=== PATIENT | female | born 1960 | race Caucasian/White ===

== ENCOUNTER 2019-08-11 10:55 | Day surgery (SDC) | payer OTHER, SELFPAY ==
[2019-08-11] VITALS (18 sets, daily range): BP systolic 87–158; BP diastolic 47–119; PULSE 60–94; RESP 16–18; TEMP 36.5–37.4; O2SAT 92–99; BMI 22.8; BMI 22.9
[2019-08-11] MEDS: Lactated Ringers 1,000 ML 100 ML IV ×3 (11:55→22:25)
--- NOTE | 2019-08-11 12:00 | COLBX_PTH ---
PATIENT: NASEEM MARTIN LOC: EN U#:[id number] AGE/SX: 59/F ROOM: RE08/11/[address]: Dr. Dakota Aldridge MD : 1960 BED: DIS: 08/12/2019 SPEC #: [id number] RECD: 08/11/19 14:31 STATUS: BHARGAV MICHELLE #: [id number] ARIN: 08/11/19 12:[address]: Dakota Aldridge DEPT: SURGICAL PATHOLOGY RECD BY: Jose Turner ENTERED: 08/12/19 12:08 SP TYPE: COLON BX OTHR DR: Dr. Giovanni Chau MD Tissues: A - Appendix, NOS B - Ileum, NOS C - COLON BIOPSY D - COLON BIOPSY Procedures: Surgery Specimen Level IV HEADER OPERATION: Colonoscopy (LORRAINE) PRE-OP DIAGNOSIS: Abdomen pain, bloody stools, diverticulitis TISSUE SUBMITTED: A - Appendiceal orifice biopsy, B - Terminal ileum biopsy, C - Random colon biopsies, D - Biopsy of colon at 20 cm of inflammation MICROSCOPIC DIAGNOSIS A. Appendiceal orifice, biopsy: Fragments of colonic mucosa with focal ulceration and acute inflammation. See comment. B. Terminal ileum, biopsy: A fragment of small intestinal mucosa, no pathologic diagnosis. C. Colon, random biopsy: Fragments of colonic mucosa, no pathologic diagnosis. D. Colon at 20 cm, biopsy: Fragment of colonic mucosa, no pathologic diagnosis. SJ:mook 08/13/19 COMMENT A. Cryptitis, crypt abscess or glandular distortion are not seen. Correlation with clinical, endoscopic findings and appropriate follow up are necessary. MICROSCOPIC DESCRIPTION Slides are reviewed. GROSS DESCRIPTION A - Received in fixative is one container labeled with the patient's name and designated appendiceal orifice biopsy. The specimen consists of two irregular fragments of light mitchell soft tissue that in aggregate measure 0.6 x 0.3 x 0.1 cm. The specimen is totally submitted in one cassette. B - Received in fixative is one container labeled with the patient's name and designated terminal ileum. The specimen consists of one irregular fragment of light mitchell soft tissue that measures 0.5 x 0.3 x 0.1 cm. The specimen is totally submitted in one cassette. C - Received in fixative is one container labeled with the patient's name and designated random colon biopsy. The specimen consists of multiple irregular fragments of light mitchell soft tissue that in aggregate measure 1 x 0.2 x 0.1 cm. The specimen is totally submitted in one cassette. D - Received in fixative is one container labeled with the patient's name and designated biopsy of colon at 20 cm. The specimen consists of one irregular fragment of light mitchell soft tissue that measures 0.5 x 0.2 x 0.1 cm. The specimen is totally submitted in one cassette. / AM:mook 08/12/19 TC:2 CPT: 54326 x4
--- NOTE | 2019-08-11 12:24 | HP.PCM_ITS ---
History and Physical Date of Admission: 08/11/19 FOLLOW UP VISIT ? ? NAME: Frieda Calderon [facility] NO.: [id number] DATE OF SERVICE: 07/14/2019 ? : 1960 ? REFERRING PHYSICIAN: ?Giovanni Chau MD ? Frieda is a patient I am following for?lower abdominal pain and changes questionable for diverticulitis per the patient. ? he patient is a 59 year old female with a complaint of abdominal pain of the last 2-3 weeks. ?The patient noted abdominal pain was relatively severe with cramping in the left lower quadrant. ?She stated she had decreased stool output when the pain was more severe but did not truly have obstipation. ?She felt the pain was similar to her previous diagnosed episodes of diverticulitis approximately 15 years previously. ?Once the pain began to subside, she noted mucus and some bright blood in her bowel movements. ?The blood was not mixed within stool and this occurred for approximately 2 days. ?She has not noted any further mucus or bleeding. ?He still notes some mild left lower quadrant and suprapubic pressure. ? She also notes a sensation of pressure with urination but denies any true dysuria. ?She's had a low-grade fever. ?When her symptoms were worse she noted nausea but denied vomiting. ? She had colonoscopy performed in 2014 which demonstrated some diverticula and a polyp which was removed. ?Pathology returned as a tubular adenoma and recommended 5 year follow-up colonoscopy. ?The patient has no family history of colon issues other than a maternal grandfather with gastric complaints. ? The patient is being seen by me today at the request of Dr. Giovanni Chau MD for my opinion and advice regarding pelvic pain, questionable diverticulitis and bloody mucous per rectum.? ? A CBC was obtained which demonstrated a normal white blood cell count but an elevated platelet count., ?Presumably panel was generally unremarkable. ?CT scan of the abdomen pelvis was obtained. ?This demonstrated with the report returning as: ? IMPRESSION: Nonobstructive bowel gas pattern with diverticulosis. Wall thickening and pericolonic infiltrative change suggesting diverticulitis at the distal rectosigmoid colon. Incidental finding of a lobulated noncalcified left lower lobe pulmonary nodule which requires further evaluation. CT scan of the chest with contrast may be helpful. ? My review of the CT scan wasn't this was a longer segment of inflammation and given the fact she had pain and bleeding was more likely consistent with colitis versus diverticulitis. ?I called the patient on Saturday discussed the findings and sent a prescription for ciprofloxacin and Flagyl for her to start. 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 ? She notes no further bleeding. ?She notes some fecal urgency but improvement in her otherwise pain symptoms. ? She is here today with her daughter area and her daughter notes that the patient is having rather regular recurring left lower quadrant symptoms and bloody diarrhea and questions?whether this may be inflammatory bowel disease ? . ?? ? VITALS:?There were no vitals taken for this visit. ? On examination,?she was less tender today than last visit ? Assessment ? IMPRESSION:?Colitis-nonspecific colitis versus inflammatory bowel disease ? PLAN: ?If the patient notes any problems or signs of worsening abdominal pain fever or recurrent bleeding, the patient should contact me immediately. ? My plan is to have her follow-up with me in 2-3 weeks and then plan to schedule a colonoscopy at a later date. ? Diagnoses:?(K52.9) Idiopathic colitis ?(primary encounter diagnosis) (K62.5) Rectal bleeding (R10.30) Lower abdominal pain ?Return to Clinic: The patient is instructed to follow-up with me?in?3?weeks. ? ? ? Dakota Aldridge MD ?
--- NOTE | 2019-08-11 14:03 | OP.COLON_ITS ---
Patient Name: Frieda Calderon Procedure Date: 08/11/2019 1:27 PM Date of : 1960 Age: 59 Procedure: Colonoscopy Indications: Abdominal pain in the left lower quadrant, Hematochezia Providers: Dakota Aldridge MD Referring MD: Giovanni Chau Medicines: Monitored Anesthesia Care Patient Profile: This is a 59 year old female. Refer to note in patient chart for documentation of history and physical. Last Colonoscopy: date unknown. Complications: No immediate complications. Procedure: Pre-Anesthesia Assessment: - Prior to the procedure, a History and Physical was performed, and patient medications and allergies were reviewed. The patient is competent. The risks and benefits of the procedure and the sedation options and risks were discussed with the patient. All questions were answered and informed consent was obtained. Patient identification and proposed procedure were verified by the physician, the nurse, the anesthesiologist and the interpreter deaf in the procedure room. Mental Status Examination: alert and oriented. Airway Examination: normal oropharyngeal airway and neck mobility. Respiratory Examination: clear to auscultation. CV Examination: normal. Prophylactic Antibiotics: The patient does not require prophylactic antibiotics. Prior Anticoagulants: The patient has taken no previous anticoagulant or antiplatelet agents. ASA Grade Assessment: II - A patient with mild systemic disease. After reviewing the risks and benefits, the patient was deemed in satisfactory condition to undergo the procedure. The anesthesia plan was to use monitored anesthesia care (MAC). Immediately prior to administration of medications, the patient was re-assessed for adequacy to receive sedatives. The heart rate, respiratory rate, oxygen saturations, blood pressure, adequacy of pulmonary ventilation, and response to care were monitored throughout the procedure. The physical status of the patient was re-assessed after the procedure. After I obtained informed consent, the scope was passed under direct vision. Throughout the procedure, the patient's blood pressure, pulse, and oxygen saturations were monitored continuously. The colonoscope was introduced through the anus and advanced to the cecum, identified by the appendiceal orifice, ileocecal valve and palpation. The colonoscopy was performed without difficulty. The patient tolerated the procedure well. The quality of the bowel preparation was good. Scope In: 1:42:34 PM Scope Withdrawal Time 0 hours 9 minutes 15 seconds Scope Out: 1:58:23 PM Total Procedure Duration Time 0 hours 15 minutes 49 seconds Findings: The perianal and digital rectal examinations were normal. Localized mild inflammation characterized by erosions and erythema was found appendiceal orifice. Biopsies were taken with a cold forceps for histology. The terminal ileum appeared normal. Biopsies were taken with a cold forceps for histology. The cecum appeared normal. Biopsies for histology were taken with a cold forceps from the cecum and sigmoid colon for evaluation of microscopic colitis. Localized moderate inflammation characterized by erosions, erythema and friability was found in the recto-sigmoid colon. Biopsies were taken with a cold forceps for histology. The retroflexed view of the distal rectum and anal verge was normal and showed no anal or rectal abnormalities. Impression: - Localized mild inflammation was found at the appendiceal orifice secondary to colitis. Biopsied. - The examined portion of the ileum was normal. Biopsied. - The cecum is normal. Biopsied. - Localized moderate inflammation was found in the recto-sigmoid colon secondary to proctitis. Biopsied. - The distal rectum and anal verge are normal on retroflexion view. Recommendation: - Discharge patient to home. - Resume previous diet. - Continue present medications. - Return to my office in 5 days. - Repeat colonoscopy is recommended. The colonoscopy date will be determined after pathology results from today's exam become available for review. Procedure Code(s): --- Professional --- 47333, Colonoscopy, flexible; with biopsy, single or multiple CPT copyright 2017 [employer]. All rights reserved. The codes documented in this report are preliminary and upon city planning engineer review may be revised to meet current compliance requirements. Dakota Aldridge MD 08/11/2019 2:03:22 PM This report has been signed electronically. Number of Addenda: 0 Note Initiated On: 08/11/2019 1:27 PM
--- NOTE | 2019-08-11 14:39 | CT_ITS ---
STUDY: CT ABDOMEN AND PELVIS WITHOUT CONTRAST REASON FOR EXAM: Female, 59 years old. Severe pain following colonoscopy. RADIATION DOSAGE (If Supplied By Facility): CTDIvol = ( 6.20 ) mGy, DLP = ( 271.11 ) mGycm TECHNIQUE: Transaxial images were obtained from the dome of the diaphragm to the symphysis pubis without oral contrast, and without intravenous contrast. Sagittal and coronal images were reconstructed. Individualized dose optimization techniques were used for this CT. COMPARISON: None. FINDINGS: The visualized lung bases are unremarkable. The visualized portions of the heart are within normal limits. Normal liver. There are surgical clips in the gallbladder fossa consistent with a prior cholecystectomy. Normal spleen. Normal pancreas. Normal bilateral adrenal glands. Normal right kidney. Normal left kidney. Normal visualized stomach. Normal small intestine. A 7.4 mm x 8.6 mm rounded density is seen in the region of the cecum. This may represent an ingested tablet. Sigmoid diverticulosis. There is a 3.1 cm x 2 cm well-defined air collection in the central pelvis. Adjacent to this, a smaller similar-appearing air collection is seen. This may represent either localized perforation or a large diverticulum. The patient is status post appendectomy. There is diffuse atherosclerotic calcification of the abdominal aorta, without a demonstrated aneurysm. Normal inferior vena cava. Normal retroperitoneum. Normal urinary bladder. There is absence of the uterus consistent with a prior hysterectomy. Normal abdominal wall. Normal osseous structures. CT/Abdomen/Pelvis without Cont IMPRESSION: Sigmoid diverticulosis with possible localized diverticular rupture in the central portion of the pelvis as described. Electronically Signed: Ricci Fulton, at 15:37 EST , Service support ,
[2019-08-11 16:48] LABS: Absolute Lymphocyte Count 1.92 X10^3/uL (0.83-4.51); Absolute Neutrophil Count 1.8 X10^3/uL (2.0-7.7); Basophil# 0.04 X10^3/uL; Basophil% 0.9 % (0-1); Eosinophil# 0.12 X10^3/uL; Eosinophils% 2.8 % (0-5); Hematocrit 35.7 % (37-47); Hemoglobin 11.9 g/dL (12.0-15.0); Lymphocyte # 1.92 X10^3/ul (4.0); Lymphocyte % 44.8 % (19-41); Mean Corp Hgb Conc 33.3 g/dL (32-36); Mean Platelet Vol. 8.4 fl (6.2-12.0); Monocyte# 0.38 X10^3/uL; Monocyte% 8.9 % (0-10); NRBC Flagged by Analyzer 0 % (0-5); Neutrophil # 1.83 X10^3/uL (2.7-7.7); Neutrophil % 42.6 % (47-70); Platelet Count 299 K/mm3 (150-450); RBC Distribution Width CV 13.1 % (11.6-14.6); RBC Distribution Width SD 46.1 fl (35.1-43.9); Red Blood Count 3.72 M/mm3 (4.2-5.4); White Blood Count 4.3 K/mm3 (4.4-11.0)
[2019-08-11 16:58] LABS: Anion Gap 4 (5-15); BUN 5 mg/dL (7-18); BUN/Creat Ratio 9.1 RATIO (10-20); Calcium,Total 8.6 mg/dL (8.5-10.1); Chloride 111 mmol/L (98-107); Creatinine, Serum 0.55 mg/dL (0.55-1.02); EST Glomerular Filtration Rate 121 mL/min (>60); Est Glom Filt Rate - Afr Amer 147 mL/min (>60); Glucose 86 mg/dL (74-106); Potassium 3.7 mmol/L (3.5-5.1); Sodium Level 144 mmol/L (136-145)
--- NOTE | 2019-08-11 18:00 | NURSING ---
pt ambulated to bathroom, then around room. tolerated well.
--- NOTE | 2019-08-11 18:57 | PCM.PN.SRG ---
Objective: improved abdominal pain following morphine administration - Physical Exam Vitals/I&O's: Vital Signs Temp Pulse Resp BP Pulse Ox 98.5 F 80 18 101/55 L 97 08/11/19 17:40 08/11/19 17:40 08/11/19 17:40 08/11/19 17:40 08/11/19 17:40 Oxygen Delivery Method Room Air Weight: 64.41 kg Body Mass Index (BMI) 22.8 Intake and Output for Last 24 Hours 08/09/19 08/10/19 08/11/19 23:59 23:59 23:59 Intake Total 423.33 / 423.33 Output Total 500 / 500 Balance -76.67 / -76.67 General: Alert, Oriented x3, Cooperative Lungs: Clear to auscultation, Normal air movement Cardiovascular: Regular rate, Regular Rhythm Abdomen: Bowel Sounds Present, Hypoactive Bowel Sounds, Tender - mild diffusely without peritoneal signs Laboratory Results 08/11/19 16:40: WBC 4.3 L, RBC 3.72 L, Hgb 11.9 L, Hct 35.7 L, MCV 96.0, MCH 32.0, MCHC 33.3, RDW Std Deviation 46.1 H, RDW Coeff of Mikael 13.1, Plt Count 299, MPV 8.4, Immature Gran % (Auto) 0.000, Neut % (Auto) 42.6 L, Lymph % (Auto) 44.8 H, [place] % (Auto) 8.9, Eos % (Auto) 2.8, Baso % (Auto) 0.9, Absolute Neuts (auto) 1.8 L, Absolute Lymphs (auto) 1.92, Nucleated RBC % 0 08/11/19 16:40: Sodium 144, Potassium 3.7, Chloride 111 H, Carbon Dioxide 29.0, Anion Gap 4 L, BUN 5 L, Creatinine 0.55, Est GFR (MDRD) Af Amer 147, Est GFR (MDRD) Non-Af 121, BUN/Creatinine Ratio 9.1 L, Glucose 86, Calcium 8.6 Current Medications Lactated Ringer's () 1,000 mls @ 100 mls/hr IV .Q10H JAKI Last Admin: 08/11/19 16:09 Dose: 100 mls/hr Documented by: Piperacillin Sod/Tazobactam (Sod 3.375 gm/ Sodium Chloride) 50 mls @ 12.5 mls/hr IV Q8 JAKI Last Admin: 08/11/19 18:44 Dose: 12.5 mls/hr Documented by: Morphine Sulfate () 1 - 4 mg IV Q1H PRN PRN PRN Reason: Pain Score 1-10/10 Sodium Chloride () 10 - 40 ml IV UD PRN PRN Reason: SALINE FLUSH Medical Necessity - Tobacco Use Smoking Status: Current every day smoker Tobacco Use: Cigarettes Assessment/Plan patient with significant diffuse abdominal pain post-colonoscopy. CT scan was obtained which suggested extraluminal air in the pelvis without significant upper abdominal or generalized free air or obvious signs of pericolonic perforation. Multiple biopsies were performed of the terminal ileum cecal base random colon sigmoid colon and low rectal areas. This could be microperforation versus true intraluminal gas in distended bowel. Are now we'll treat patient is microperforation. White blood cell count was 4.3 and patient without significant fever area and started Zosyn given the patient's allergies. We'll plan for repeat laboratory studies serial exams and repeat CAT scan in the morning.
[2019-08-11] MEDS: Morphine 2 MG/ML Syringe IV ×2 (19:26→23:20)
[2019-08-11] MEDS: ALPRAZolam 0.5 MG Tablet PO (23:56)
[2019-08-12 03:01] VITALS: BP 99/54; PULSE 73; RESP 18; TEMP 36.8; O2SAT 95
--- NOTE | 2019-08-12 05:00 | CT_ITS ---
STUDY: CT ABDOMEN AND PELVIS WITHOUT CONTRAST REASON FOR EXAM: Female, 59 years old. Severe abdominal pain post colonoscopy. History of previous appendectomy, cholecystectomy, and unilateral salpingo-oophorectomy. RADIATION DOSAGE (If Supplied By Facility): CTDIvol = ( 6.13 ) mGy, DLP = ( 280.38 ) mGycm TECHNIQUE: Transaxial images were obtained from the dome of the diaphragm to the symphysis pubis without oral contrast, and without intravenous contrast. Sagittal and coronal images were reconstructed. Individualized dose optimization techniques were used for this CT. COMPARISON: CT scan 08/11/2019. FINDINGS: There is mild atelectasis in the visualized posterior lung bases, which is worsened from yesterday's exam. There is minimal pleural fluid bilaterally, which is also new.. There are some calcified pulmonary granulomas in the right lower lobe. There is The visualized portions of the heart are within normal limits. Normal liver. There are surgical clips in the gallbladder fossa consistent with a prior cholecystectomy. Normal spleen. Normal pancreas. Normal bilateral adrenal glands. Normal right kidney. Normal left kidney. Normal visualized stomach. Normal small intestine. There are multiple colonic diverticula consistent with diverticulosis. There is no evidence for acute diverticulitis. A 3 cm collection of air in the mid pelvis, noted on yesterday's exam, is not seen on current study. Review of the previous images suggest that it represented focal gaseous distention of a small bowel loop. There is a 9 mm rounded calcific density in the cecum, also present on previous exam. Finding may represent an undigested pill. This is of doubtful clinical significance. The appendix is not visualized, consistent with given history of prior appendectomy. There is atherosclerotic calcification of the abdominal aorta, without a demonstrated aneurysm. Normal inferior vena cava. Normal retroperitoneum. Normal urinary bladder. There is a surgical clip in the right adnexal region, possibly related to previous salpingectomy. Normal abdominal wall. Normal osseous structures. CT/Abdomen/Pelvis without Cont IMPRESSION: Worsening bilateral posterior basilar atelectasis. New finding of very small bilateral pleural effusions. Colonic diverticulosis, without evidence for acute diverticulitis. No evidence for colonic perforation or pericolonic abscess. Atherosclerosis. Previous cholecystectomy and right salpingo-oophorectomy. Previous appendectomy by history. No evidence for acute pathology within the abdomen or pelvis. Electronically Signed: Ramiro Solis MD at 6:43 EST , Service support ,
[2019-08-12 06:28] LABS: Absolute Neutrophil Count 3.3 X10^3/uL (2.0-7.7); Basophil# 0.05 X10^3/uL; Basophil% 0.9 % (0-1); Eosinophil# 0.09 X10^3/uL; Eosinophils% 1.6 % (0-5); Hematocrit 35.8 % (37-47); Hemoglobin 11.9 g/dL (12.0-15.0); Lymphocyte % 29.8 % (19-41); Mean Corp Hgb Conc 33.2 g/dL (32-36); Mean Corpuscular Volume 96.2 fL (81-99); Mean Platelet Vol. 8.3 fl (6.2-12.0); Monocyte# 0.57 X10^3/uL; NRBC Flagged by Analyzer 0 % (0-5); Neutrophil # 3.28 X10^3/uL (2.7-7.7); Neutrophil % 57.3 % (47-70); Platelet Count 307 K/mm3 (150-450); RBC Distribution Width CV 13.1 % (11.6-14.6); Red Blood Count 3.72 M/mm3 (4.2-5.4); White Blood Count 5.7 K/mm3 (4.4-11.0)
[2019-08-12 06:45] LABS: ALB/GLOB Ratio 1.1 RATIO (0.9-2.4); AST(SGOT) 72 U/L (15-37); Alanine Aminotransfer ALT/SGPT 70 U/L (13-56); Albumin, Serum 3.2 g/dL (3.2-5.0); Alkaline Phosphatase 78 U/L (45-117); Anion Gap 6 (5-15); BUN 5 mg/dL (7-18); BUN/Creat Ratio 7.7 RATIO (10-20); Calcium,Total 8.3 mg/dL (8.5-10.1); Chloride 108 mmol/L (98-107); Creatinine, Serum 0.65 mg/dL (0.55-1.02); EST Glomerular Filtration Rate 100 mL/min (>60); Est Glom Filt Rate - Afr Amer 120 mL/min (>60); Estimated Creatinine Clearance 89.39 ml/min; Globulin 2.9 g/dL (2.2-4.2); Glucose 87 mg/dL (74-106); Potassium 3.6 mmol/L (3.5-5.1); Protein, Total 6.1 g/dL (6.4-8.2); Sodium Level 142 mmol/L (136-145)
[2019-08-12] MEDS: Acetaminophen 325 MG Tablet 650 MG PO ×2 (07:39→14:37)
[2019-08-12] MEDS: Ibuprofen 600 MG Tablet PO (08:56)
[2019-08-12 09:01] VITALS: BP 95/57; PULSE 74; RESP 16; TEMP 36.4; O2SAT 94
[2019-08-12] MEDS: Lactated Ringers 1,000 ML 100 ML IV (09:48)
[2019-08-12 14:43] VITALS: BP 108/62; PULSE 65; RESP 16; TEMP 36.6; O2SAT 93
--- NOTE | 2019-08-12 18:34 | PCM.DC.SUM ---
Discharge Date and Diagnosis Date of Admission: 08/11/19 Date of Discharge: 08/12/19 - Primary Discharge Diagnosis left lower quadrant pain, questionable colitis versus diverticulitis Hospital Course and Treatment Procedures: Colonoscopy Summary of Care Provided: The patient is a 59 year old F with relatively chronic left lower quadrant pain who had more acute left lower quadrant pain and was given a diagnosis following CAT scan of diverticulitis versus colitis. The patient noted left lower quadrant pain and rectal bleeding. She presented for outpatient colonoscopy. Post colonoscopy the patient had significant abdominal pain that seemed out of portion for a colonoscopy with biopsies that was relatively uneventful. CT scan was obtained which suggested free air. The patient's white count vitals were normal. She was admitted made nothing by mouth and given IV antibiotics as a precaution. Overnight the patient was able to pass flatus and noted improvement in her abdominal discomfort. Repeat CT scan the following morning demonstrated no free air normal bowel gas pattern. The patient's white blood cell count was normal and she was hungry. Her diet was advanced and she was discharged home with instructions to follow-up in my office. - Physical Exam Vitals/I&O's: Vital Signs Temp Pulse Resp BP Pulse Ox 97.9 F 65 16 108/62 93 08/12/19 14:43 08/12/19 14:43 08/12/19 14:43 08/12/19 14:43 08/12/19 14:43 Oxygen Delivery Method Room Air Weight: 64.41 kg Body Mass Index (BMI) 22.8 Intake and Output for Last 24 Hours 08/10/19 08/11/19 08/12/19 23:59 23:59 23:59 Intake Total 1100.00 / 1130.00 2414.17 / 2414.17 Output Total 500 / 500 300 / 300 Balance 600.00 / 630.00 2114.17 / 2114.17 General: Alert, Oriented x3, Cooperative Lungs: Clear to auscultation, Normal air movement Cardiovascular: Regular rate, No murmurs Abdomen: Bowel Sounds Present, Soft, Non Tender Laboratory Results 08/12/19 06:10: WBC 5.7, RBC 3.72 L, Hgb 11.9 L, Hct 35.8 L, MCV 96.2, MCH 32.0, MCHC 33.2, RDW Std Deviation 47.0 H, RDW Coeff of Mikael 13.1, Plt Count 307, MPV 8.3, Immature Gran % (Auto) 0.400, Neut % (Auto) 57.3, Lymph % (Auto) 29.8, [place] % (Auto) 10.0, Eos % (Auto) 1.6, Baso % (Auto) 0.9, Absolute Neuts (auto) 3.3, Absolute Lymphs (auto) 1.70, Nucleated RBC % 0 08/12/19 06:10: Sodium 142, Potassium 3.6, Chloride 108 H, Carbon Dioxide 28.0, Anion Gap 6, BUN 5 L, Creatinine 0.65, Estim Creat Clear Calc 89.39, Est GFR (MDRD) Af Amer 120, Est GFR (MDRD) Non-Af 100, BUN/Creatinine Ratio 7.7 L, Glucose 87, Calcium 8.3 L, Total Bilirubin 0.40, AST 72 H, ALT 70 H, Alkaline Phosphatase 78, Total Protein 6.1 L, Albumin 3.2, Globulin 2.9, Albumin/Globulin Ratio 1.1 Home Medications: Medications to take at Discharge Pindolol [Pindolol ([place]eta [place])] 2.5 mg PO BID 05/23/15 ALPRAZolam [Xanax] 0.5 mg PO BID PRN PRN 08/07/19 Primary Care Physician: Giovanni Chau MD [Primary Care Provider] - Please Follow Up With: Dakota Aldridge MD Medical Necessity - Tobacco Use Smoking Status: Current every day smoker Tobacco Use: Cigarettes Meaningful Use Info Meaningful Use Diagnoses (Choose all that apply): None applicable
== END 2019-08-12 14:12 | disposition home or self-care (01) ==
LOC: EN 10:56 → AC 11:00 → PCU 17:25
PROVIDERS: Family Provider Internal Medicine; PCP Internal Medicine; Referring Provider Internal Medicine; Visit Provider Surgery
PROC: 0DJD8ZZ Inspection of Lower Intestinal Tract, Via Natural or Artificial Opening Endoscopic (ICD-10-PCS; CPT 45378; principal; 2019-08-11 11:55)
DX: K52.9 Noninfective gastroenteritis and colitis, unspecified (principal); K62.5 Hemorrhage of anus and rectum; R10.30 Lower abdominal pain, unspecified; F17.210 Nicotine dependence, cigarettes, uncomplicated; K57.30 Diverticulosis of large intestine without perforation or abscess without bleeding; R91.1 Solitary pulmonary nodule
CPT/HCPCS: 45380; 36415; 74176; 80048; 80053; 85025; 88305; 99251; 99406; J7050; J7120; G0463; J2405

== ENCOUNTER → 2019-09-01 13:33 | Outpatient (CLI) | payer OTHER, SELFPAY ==
[2019-08-11 17:37] VITALS: BMI 22.8
--- NOTE | 2019-09-01 14:31 | CT_ITS ---
STUDY: LOW DOSE CT LUNG CANCER SCREENING REASON FOR EXAM: Female, 59 years old. The patient smoked 1 pack per day for 44 years. RADIATION DOSAGE (If Supplied By Facility): CTDIvol = ( 2.01 ) mGy, DLP = ( 62.43 ) mGycm TECHNIQUE: No contrast was administered. Low dose technique was utilized (average mAS-38 and kVp 120). 1.25 mm axial source images with a slice interval of 1.25-mm were reconstructed in lung windows. 2.5 mm axial source images with a slice interval of 2.5-mm were reconstructed in lung windows. 5.0 mm axial source images with a slice interval of 5.0-mm were reconstructed in soft tissue windows. Nodule measured using lung windows on PACS and/or independent workstation with automated measurement of minimum and maximum diameter. Nodule measurement reported as average diameter rounded to the nearest whole number. Growth is defined as an increase ins size of greater than 1.5 mm. COMPARISON: None. NODULES: There is a 9.4 mm x 12.2 mm x 9.1 mm lobulated nodular density in the anterior aspect of the left lower lobe as seen on axial image #150 and coronal image #151. No calcification is seen within it. Scattered tiny nodular densities are seen in the peripheral aspect of both lower lobes suggestive of tiny noncalcified granulomas. Emphysema: Mild emphysematous changes. Aorta: Unremarkable. Coronary arteries: Coronary artery calcification. CT/Low Dose CT Lung Screening IMPRESSION: Lung-RADS category 4B - Chest CT with or without contrast, PET/CT and/or tissue sampling can be obgtained depending on the probability of maligancy and comorbidities. IMPORTANT NOTES FOR USE: ACR Lung-RADS Version 1.0 Assessment Categories Release Date: January 18, 2014 Category: Coded 0-4 bases on nodule(s) with highest degree of suspicion. Negative screen is defined as categories 1 and 2; a positive screen is defined as categories 3 and 4. Category 3 and 4A nodules that are unchanged on interval CT should be coded as category 2, and individuals returned to screening in 12 months. Category 4X: Category 3 or 4 nodules with additional imaging findings that increase the suspicion of lung cancer, such as spiculation, GGN that doubles in size in 1 year, enlarged lymph notes, etc. Category Modifiers: S (significant finding unrelated to lung cancer) and C (prior history of treated lung cancer) may be added to the 0-4 Lung-RADS Electronically Signed: Ricci Fulton, at 15:48 EST , Service support ,
== END ==
PROVIDERS: Family Provider Internal Medicine; PCP Internal Medicine; Referring Provider Nurse Practitioner Family; Visit Provider Nurse Practitioner Family
DX: Z12.2 Encounter for screening for malignant neoplasm of respiratory organs (principal); F17.209 Nicotine dependence, unspecified, with unspecified nicotine-induced disorders
CPT/HCPCS: G0297

== ENCOUNTER 2022-04-13 14:02 | Emergency (ER) | payer SELFPAY ==
[2022-04-13 14:05] VITALS: BP 159/89; PULSE 66; RESP 18; TEMP 36.4; O2SAT 97; BMI 23.3
--- NOTE | 2022-04-13 14:20 | EKG12_ITS ---
Test Reason : PAIN Blood Pressure : / mmHG Vent. Rate : 059 BPM Atrial Rate : 059 BPM P-R Int : 138 ms QRS Dur : 074 ms QT Int : 420 ms P-R-T Axes : 066 071 065 degrees QTc Int : 415 ms Sinus bradycardia Septal infarct , age undetermined Abnormal ECG Confirmed by BRYNAT BLAKE, EH ([id number]), editorial manager REAL RHODES ([id number]) on 04/17/2022 9:22:11 AM Referred By: JULIO CÉSAR Confirmed By:EH HURTADO MD
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
[2022-04-13 14:46] LABS: Absolute Lymphocyte Count 2.44 X10^3/uL (0.83-4.51); Absolute Neutrophil Count 3.8 X10^3/uL (2.0-7.7); Basophil# 0.04 X10^3/uL; Basophil% 0.6 % (0-1); Eosinophil# 0.28 X10^3/uL; Eosinophils% 3.9 % (0-5); Hematocrit 44.6 % (37-47); Lymphocyte # 2.44 X10^3/ul (0.83-4.51); Lymphocyte % 34.2 % (19-41); Mean Corp Hgb Conc 33.6 g/dL (32-36); Mean Corpuscular Hgb 32.6 pg (27.0-32.0); Mean Platelet Vol. 8.4 fl (6.2-12.0); Monocyte# 0.59 X10^3/uL; Monocyte% 8.3 % (0-10); NRBC Flagged by Analyzer 0 % (0-5); Neutrophil # 3.77 X10^3/uL (2.7-7.7); Neutrophil % 52.7 % (47-70); Platelet Count 331 K/mm3 (150-450); RBC Distribution Width CV 12.9 % (11.6-14.6); RBC Distribution Width SD 45.8 fl (35.1-43.9); White Blood Count 7.1 K/mm3 (4.4-11.0)
[2022-04-13 14:50] VITALS: BP 133/82; PULSE 64; RESP 17; O2SAT 94
[2022-04-13] MEDS: 0.9% Normal Saline 1,000 ML 999 ML IV (14:59)
[2022-04-13 15:06] LABS: ALB/GLOB Ratio 1.2 RATIO (0.9-2.4); AST(SGOT) 15 U/L (15-37); Alanine Aminotransfer ALT/SGPT 28 U/L (13-56); Albumin, Serum 4.2 g/dL (3.2-5.0); Alkaline Phosphatase 60 U/L (45-117); Anion Gap 5 (5-15); BUN 7 mg/dL (7-18); BUN/Creat Ratio 9.8 RATIO (10-20); Calcium,Total 9.3 mg/dL (8.5-10.1); Chloride 109 mmol/L (98-107); Creatinine, Serum 0.71 mg/dL (0.55-1.02); EST Glomerular Filtration Rate 89 mL/min (>60); Est Glom Filt Rate - Afr Amer 107 mL/min (>60); Estimated Creatinine Clearance 78.88 ml/min; Globulin 3.4 g/dL (2.2-4.2); Glucose 98 mg/dL (74-106); Potassium 3.9 mmol/L (3.5-5.1); Protein, Total 7.6 g/dL (6.4-8.2); Sodium Level 140 mmol/L (136-145); Troponin-I HS 4 pg/mL (3.0-54.0)
[2022-04-13 16:25] VITALS: BP 122/71; PULSE 57; RESP 15; O2SAT 96
[2022-04-13 16:40] VITALS: BP 130/66; PULSE 59; RESP 15; O2SAT 96
[2022-04-13 16:57] LABS: Bacteria 0 SEEN /hpf (None Seen); Mucous, Urine 0 SEEN /hpf (<or=2+); Red Blood Cells-Urine 0 SEEN /hpf (0-5); White Blood Cells 0 SEEN /hpf (0-5)
[2022-04-13 17:06] LABS: Color, Urine Yellow (Yellow); Glucose, Dipstick Normal (Normal); Ketone-Dipstick 15 mg/dl (Negative); Leukocyte Esterase-Dipstick Negative /ul (Negative); Nitrite-Dipstick Negative (Negative); Occult Blood-Urine Negative /ul (Negative); Protein-Dipstick Negative (Negative); Specific Gravity, Urine 1.015 (1.002-1.030); Urine Bilirubin Dipstick Negative (Negative); Urine Clarity Sl. Cloudy (Clear); Urine Urobilinogen Normal (Normal)
[2022-04-13] MEDS: Ketorolac 15 MG/ML Vial IV (17:06)
[2022-04-13 17:15] LABS: Squamous Epithelial Cells - UA 0-5 SEEN /hpf (5-10)
[2022-04-13] MEDS: Acetaminophen 325 MG Tablet 650 MG PO (18:41)
--- NOTE | 2022-04-13 18:54 | CT_ITS ---
STUDY: CT BRAIN WITHOUT CONTRAST REASON FOR EXAM: Female, 62 years old. headache RADIATION DOSAGE (If Supplied By Facility): CTDIvol = ( 47.06 ) mGy, DLP = ( 890.33 ) mGycm TECHNIQUE: Transaxial CT imaging of the brain was performed without administration of intravenous contrast material. Individualized dose optimization techniques were used for this CT. COMPARISON: No relevant priors. FINDINGS: Normal soft tissue structures. Normal calvarium. Calcific plaquing of cavernous carotids. Normal size ventricles and extra-axial spaces for the patient''s age. Minor periventricular white matter ischemic changes.. Normal basal ganglia and thalami. Normal brainstem. Normal cerebellum. There is no intracranial hemorrhage. There are no findings of an acute ischemic infarction. Normal visualized paranasal sinuses. CT/Brain/Head without Contrast IMPRESSION: Mild periventricular white matter ischemic changes. . No evidence for obstructive hydrocephalus mass or acute bleed Electronically Signed: Jose Huff MD at 19:24 EDT ,
== END 2022-04-13 20:41 | disposition home or self-care (01) ==
PROVIDERS: Emergency Provider Emergency Medicine; PCP Internal Medicine; Visit Provider Emergency Medicine
DX: G44.209 Tension-type headache, unspecified, not intractable (principal); R53.81 Other malaise; R19.7 Diarrhea, unspecified; F41.9 Anxiety disorder, unspecified; F17.210 Nicotine dependence, cigarettes, uncomplicated; R11.0 Nausea; I10 Essential (primary) hypertension; D64.9 Anemia, unspecified
CPT/HCPCS: 70450; 80053; 81001; 84484; 85025; 87635; 93005; 99284; J7030; A4216; U0003; U0005